=== PATIENT | male | born 1960 | race Caucasian/White ===

== ENCOUNTER 2016-11-28 14:16 | Observation (INO) | payer SELFPAY ==
[2016-11-28] MEDS ORDERED: NORMAL SALINE 1000 ML 1,000 ML IV ONE ×2 (14:55→18:56)
[2016-11-28] MEDS ORDERED: ONDANSETRON HCL INJ/PF 4 MG/2 ML SDV IV ONE (16:12)
[2016-11-28] MEDS ORDERED: HYDROMORPHONE HCL INJ/PF 2 MG/ML AMPULE IV ONE ×2 (16:12→18:56)
--- NOTE | 2016-11-28 16:19 | ER Document Report ---
ED Medical Screen (RME) - General Chief Complaint: Abdominal Pain Stated Complaint: ABDOMINAL PAIN Mode of Arrival: Ambulatory Information source: Patient TRAVEL OUTSIDE OF THE [place] IN LAST 30 DAYS: No - HPI Onset: This morning - 2 AM Onset/Duration: Sudden Context: AWAKENED BY PAIN Quality of pain: Cramping, Sharp, Stabbing Severity: Severe Associated Symptoms: Nausea, Sweating, Vomiting Exacerbated by: Denies Relieved by: Denies Similar symptoms previously: Yes - PANCREATITIS Recently seen / treated by doctor: Yes - 11/23, NARCS REFILLED - Related Data Smoking: Cigarettes Frequency of alcohol use: None - NONE IN PAST 5 YRS, HE SAYS. Drug Abuse: None Allergies/Adverse Reactions: hydrocodone [From Vicodin] Allergy (Verified 11/28/16 14:48) Past Medical History - General Information source: Patient - Social History Cigarette use (# per day): Yes Chew tobacco use (# tins/day): No Frequency of alcohol use: None Drug Abuse: None Lives with: Family Family history: Reviewed & Not Pertinent - Past Medical History Cardiac Medical History: Reports: None Pulmonary Medical History: Reports: None Neurological Medical History: Reports: None Endocrine Medical History: Reports: None Renal/ Medical History: Reports: None. Denies: Hx Peritoneal Dialysis Malignancy Medical History: Reports None GI Medical History: Denies: Hx Cirrhosis, Hx Hepatitis, Hx Liver Failure Musculoskeltal Medical History: Reports Hx Arthritis - NECK, BACK Skin Medical History: Reports None Past Surgical History: Denies: Hx Cholecystectomy - Immunizations Hx Diphtheria, Pertussis, Tetanus Vaccination: Yes Review of Systems - Review of Systems Constitutional: See HPI EENT: No symptoms reported Cardiovascular: No symptoms reported Respiratory: No symptoms reported Gastrointestinal: See HPI Musculoskeletal: See HPI Physical Exam - Vital signs Vitals: Temp Pulse Resp BP Pulse Ox 98.4 F 70 18 153/85 H 100 11/28/16 14:54 11/28/16 14:54 11/28/16 14:54 11/28/16 14:54 11/28/16 14:54 Interpretation: Hypertensive. No: Tachycardic, Tachypneic, Febrile - General General appearance: Alert In distress: Moderate - HEENT Head: Normocephalic Eyes: Normal Conjunctiva: Normal Ears: Normal Nasal: Normal Mouth/Lips: Normal Mucous membranes: Dry - Respiratory Respiratory status: No respiratory distress - Cardiovascular Rhythm: Regular - Abdominal Inspection: Normal Tenderness: Tender - EPIGASTRIC - Extremities General upper extremity: Normal inspection General lower extremity: Normal inspection - Neurological Neuro grossly intact: Yes Cognition: Normal Orientation: AAOx4 - Psychological Associated symptoms: Normal affect, Normal mood - Skin Skin Temperature: Warm Skin Moisture: Dry Skin Color: Normal Skin Turgor: Elastic Course - Vital Signs Vital signs: Temp Pulse Resp BP Pulse Ox 98.4 F 70 18 153/85 H 100 11/28/16 14:54 11/28/16 14:54 11/28/16 14:54 11/28/16 14:54 11/28/16 14:54
[2016-11-28 16:41] LABS: ABSOLUTE BASOPHILS # (AUTO) 0.1 10^3/uL (0.0-0.2); ABSOLUTE LYMPHOCYTES (AUTO) 0.8 10^3/uL (0.5-4.7); ABSOLUTE MONOCYTES (AUTO) 0.2 10^3/uL (0.1-1.4); ABSOLUTE NEUT (AUTO) 10.6 10^3/uL (1.7-8.2); BASOPHILS % (AUTO) 0.9 % (0-2); HEMATOCRIT 37.9 % (37.9-51.0); HEMOGLOBIN 12.8 g/dL (13.5-17.0); HGB HCT DIFFERENCE 0.5; LYMPHOCYTES % (AUTO) 6.7 % (13-45); MEAN CORPUSCULAR HEMOGLOBIN 32.1 pg (27.0-33.4); MEAN CORPUSCULAR HGB CONC 33.8 g/dL (32.0-36.0); MEAN CORPUSCULAR VOLUME 95 fl (80-97); RED BLOOD COUNT 3.99 10^6/uL (4.35-5.55); RED CELL DISTRIBUTION WIDTH 12.7 % (11.5-14.0); SEGMENTED NEUTROPHILS % (AUTO) 90.4 % (42-78); WHITE BLOOD COUNT 11.8 10^3/uL (4.0-10.5)
[2016-11-28 16:49] LABS: APPEARANCE,URINE CLEAR; BILIRUBIN,URINE NEGATIVE (NEGATIVE); GLUCOSE, URINE NEGATIVE (NEGATIVE); KETONES,URINE 80 mg/dL (NEGATIVE); LEUKOCYTE ESTERASE,URINE NEGATIVE (NEGATIVE); NITRITE,URINE NEGATIVE (NEGATIVE); PROTEIN,URINE 30 mg/dL (NEGATIVE); URINE SPECIFIC GRAVITY 1.028
[2016-11-28 16:59] LABS: URINE BARBITURATES SCREEN NEGATIVE; URINE METHADONE SCREEN NEGATIVE; URINE OPIATES LOW UNCONFIRMED POSITIVE; URINE PHENCYCLIDINE SCREEN NEGATIVE
[2016-11-28 17:01] LABS: ALANINE AMINOTRANSFERASE 30 U/L (21-72); ALBUMIN 4.6 g/dL (3.5-5.0); ALKALINE PHOSPHATASE 91 U/L (38-126); ANION GAP 16 (5-19); ASPARTATE AMINO TRANSFERASE 20 U/L (17-59); BILIRUBIN,DIRECT 0.2 mg/dL (0.0-0.4); BILIRUBIN,TOTAL 1.1 mg/dL (0.2-1.3); BLOOD UREA NITROGEN 14 mg/dL (7-20); CARBON DIOXIDE 23 mmol/L (22-30); CHLORIDE 105 mmol/L (98-107); CREATININE RESULT 0.66 mg/dL (0.52-1.25); GLUCOSE 123 mg/dL (75-110); LIPASE 34.9 U/L (23-300); POTASSIUM 3.6 mmol/L (3.6-5.0); SODIUM 144.3 mmol/L (137-145); TOTAL PROTEIN 7.6 g/dL (6.3-8.2)
[2016-11-28] MEDS ORDERED: FENTANYL CITRATE INJ/PF 100 MCG/2 ML AMPUL IV ONE (23:09)
[2016-11-28] MEDS ORDERED: PROMETHAZINE HCL INJ 25 MG/1 ML VIAL IM ONE (23:09)
--- NOTE | 2016-11-28 23:11 | ER Document Report ---
ED General - General Chief Complaint: Abdominal Pain Stated Complaint: ABDOMINAL PAIN Mode of Arrival: Ambulatory Notes: Patient is a 56-year-old male presents with complaint of abdominal pain has been ongoing for 2 days. Some nausea and vomiting started this morning. No diarrhea. He does have a history of pancreatitis. He is unsure if this is the same thing. He denies any fevers. Says he feels chilled. He denies any recent surgeries on his abdomen. No blood in the stool. No blood in his emesis. TRAVEL OUTSIDE OF THE [place] IN LAST 30 DAYS: No - Related Data Allergies/Adverse Reactions: hydrocodone [From Vicodin] Allergy (Verified 11/28/16 14:48) Past Medical History - General Information source: Patient - Social History Smoking Status: Current Every Day Smoker Cigarette use (# per day): Yes Chew tobacco use (# tins/day): No Frequency of alcohol use: None Drug Abuse: None Lives with: Family Family History: COPD Patient has suicidal ideation: No Patient has homicidal ideation: No - Past Medical History Cardiac Medical History: Reports: None Pulmonary Medical History: Reports: None Neurological Medical History: Reports: None Endocrine Medical History: Reports: None Renal/ Medical History: Reports: None. Denies: Hx Peritoneal Dialysis Malignancy Medical History: Reports None GI Medical History: Denies: Hx Cirrhosis, Hx Hepatitis, Hx Liver Failure Musculoskeltal Medical History: Reports Hx Arthritis - NECK, BACK Skin Medical History: Reports None Infectious Medical History: Denies: Hx Hepatitis Past Surgical History: Denies: Hx Cholecystectomy - Immunizations Hx Diphtheria, Pertussis, Tetanus Vaccination: Yes Review of Systems - Review of Systems Notes: My Normal Review Basic REVIEW OF SYSTEMS: CONSTITUTIONAL : Denies fever, chills, or sweats. Denies recent illness. EENT: Denies eye, ear, throat, or mouth pain or symptoms. Denies nasal or sinus congestion. CARDIOVASCULAR: Denies chest pain. RESPIRATORY: Denies cough, cold, or chest congestion. Denies shortness of breath, difficulty breathing, or wheezing. GASTROINTESTINAL: Has abdominal pain. Some vomiting. No diarrhea. Denies constipation. Last BM: GENITOURINARY: Denies difficulty urinating, painful urination, burning, frequency, or blood in urine. MUSCULOSKELETAL: Denies neck or back pain or joint pain or swelling. SKIN: Denies rash or skin lesions. NEUROLOGICAL: Denies altered mental status or loss of consciousness. Denies headache. Denies weakness or paralysis or loss of use of either side. Denies problems with gait or speech. Denies sensory or motor loss. ALL OTHER SYSTEMS REVIEWED AND NEGATIVE. Physical Exam - Vital signs Vitals: Temp Pulse Resp BP Pulse Ox 98.4 F 70 18 153/85 H 100 11/28/16 14:54 11/28/16 14:54 11/28/16 14:54 11/28/16 14:54 11/28/16 14:54 - Notes Notes: General Appearance: Well nourished, alert, cooperative, no acute distress, moderate to severe obvious discomfort. Vitals: reviewed, See vital signs table. Head: no swelling or tenderness to the head Eyes: PERRL, EOMI, Conjuctiva clear Mouth: No decreasd moisture Lungs: No wheezing, No rales, No rhonci, No accessory muscle use, good air exchange bilaterally. Heart: Normal rate, Regular rythm, No murmur, no rub Abdomen: Normal BS, soft, No rigidity, diffuse moderate abdominal tenderness, No guarding, no rebound, no abdominal masses, no organomegaly Extremities: strength 5/5 in all extremities, good pulses in all extremities, no swelling or tenderness in the extremities, no edema. Skin: warm, dry, appropriate color, no rash Neuro: speech clear, oriented x 3, normal affect, responds appropriately to questions. Course - Vital Signs Vital signs: Temp Pulse Resp BP Pulse Ox 98.6 F 70 19 119/65 100 11/28/16 23:48 11/28/16 14:54 11/29/16 05:31 11/29/16 05:31 11/29/16 05:31 - Laboratory Result Diagrams: 11/28/16 16:20 11/28/16 16:20 Laboratory results interpreted by me: 11/28/16 11/28/16 11/28/16 16:20 16:20 16:20 WBC 11.8 H RBC 3.99 L Hgb 12.8 L Seg Neutrophils % 90.4 H Lymphocytes % 6.7 L Monocytes % 2.0 L Absolute Neutrophils 10.6 H Glucose 123 H Urine Protein 30 H Urine Ketones 80 H Urine Blood SMALL H Urine Urobilinogen 4.0 H - EKG Interpretation by Me Additional EKG results interpreted by me: 11/28/16 23:49 EKG is reviewed and interpreted by me. EKG shows normal sinus rhythm with rate of [address] segment elevation or depression. No ischemic T wave inversions. NE interval, QRS duration, QTC intervals are within normal range. No old EKG available for comparison. - Transfer of Care Notes: 11/29/16 00:52 I have reevaluated the patient. His pain is improving. Phenergan did help his nausea. He wants to make sure he does get IV rehydration. I am giving him a liter bolus at this time. I will recheck him after the liter bolus is finished. 11/29/16 03:01 Patient received IV fluids. I did try an oral challenge with just water. He really started vomiting afterwards. Therefore gave her more nausea medicine. He still has a lot of nausea cannot hold down any liquids. I did call the hospitalist for admission. The hospitalist currently thinks this may be due to constipation from being on chronic opiates and wants to give him lactulose and then reassess him. Discharge - Discharge Clinical Impression: Abdominal pain Qualifiers: Abdominal location: generalized Qualified Code(s): R10.84 - Generalized abdominal pain Vomiting Qualifiers: Vomiting type: unspecified Vomiting Intractability: intractable Nausea presence : with nausea Qualified Code(s): R11.2 - Nausea with vomiting, unspecified Condition: Stable Disposition: ADMITTED OBSERVATION
[2016-11-28] MEDS ORDERED: PROMETHAZINE HCL INJ 50 MG/1 ML VIAL ONE (23:33)
[2016-11-29] MEDS ORDERED: METOCLOPRAMIDE HCL INJ/PF 10 MG/2 ML SDV IV ONE (02:22)
[2016-11-29] MEDS ORDERED: ONDANSETRON HCL INJ/PF 4 MG/2 ML SDV IV ONE (02:22)
[2016-11-29] MEDS ORDERED: LACTULOSE SYRUP 20 GM/30 ML UDCUP PR ONE (03:01)
[2016-11-29] MEDS ORDERED: LACTULOSE SYRUP 20 GM/30 ML UDCUP ONE (04:19)
[2016-11-29] MEDS ORDERED: HYDROMORPHONE HCL INJ/PF 2 MG/ML AMPULE IV ONE (04:21)
[2016-11-29] MEDS ORDERED: HALOPERIDOL LACTATE INJ 5 MG/1 ML VIAL IV ONE (04:34)
[2016-11-29] MEDS ORDERED: MAGNESIUM HYDROXIDE SUSP 30 ML UDCUP PO PRN (04:59)
[2016-11-29] MEDS ORDERED: IPRATROPIUM/ALBUTEROL 0.5-2.5 MG/3 ML AMPUL NEB PRN (04:59)
[2016-11-29] MEDS ORDERED: ACETAMINOPHEN 325 MG TABLET PO PRN (04:59)
--- NOTE | 2016-11-29 04:59 | PDOC H&P ---
History of Present Illness Patient complains of: Abdominal pain History of Present Illness: KATELYN DURAN is a 56 year old male with a history of, tobacco dependence, opiate and benzodiazepine dependent chronic pain on Soma, OxyContin and Valium. Has had 48 hours of abdominal pain with nausea and gas with constipation prompting him to seek evaluation emergency room where his an unremarkable workup except for a CT with moderate residual stool burden. In the emergency room he receives symptomatic management with fentanyl and Dilaudid then is referred to the hospitalist for admission. Upon entry to the patient's room he is asleep requiring vigorous limb shaking to arouse which results in crying out in pain with a heart rate of 72 blood pressure of 118/76 and zero eye contact. Past Medical History Cardiac Medical History: Reports: None Pulmonary Medical History: Reports: None Neurological Medical History: Reports: None Endocrine Medical History: Reports: None Renal/ Medical History: Reports: None Malignancy Medical History: Reports: None GI Medical History: Denies: Cirrhosis, Hepatitis Musculoskeltal Medical History: Reports: Arthritis - NECK, BACK Skin Medical History: Reports: None Past Surgical History Past Surgical History: Denies: Cholecystectomy Social History Lives with: Family Smoking Status: Current Every Day Smoker Cigarettes Packs Per Day: 1.5 Frequency of Alcohol Use: None Hx Recreational Drug Use: No - patient denies Drugs: None Hx Prescription Drug Abuse: No - patient denies - Advance Directive Resuscitation Status: Full Code Family History Family History: COPD Parental Family History Reviewed: Yes Children Family History Reviewed: Yes Sibling(s) Family History Reviewed.: Yes Medication/Allergy Home Medications: Carisoprodol [Soma] 1 tab PO BID PRN 05/28/16 Diazepam [Valium 5 mg Tablet] 5 mg PO BIDP PRN 05/28/16 Ibuprofen [Motrin 800 mg Tablet] 800 mg PO TIDP PRN 05/28/16 Nicotine [Nicoderm 14 mg/24 Hr Transdermal Patch] 1 each TD DAILY patch.td24 Oxycodone HCl [Oxycodone HCl 10 MG Tablet] 10 mg PO QID PRN #30 tablet 05/29/16 Allergies/Adverse Reactions: hydrocodone [From Vicodin] Allergy (Verified 11/28/16 14:48) Review of Systems Constitutional: ABSENT: chills, fever(s), headache(s), weight gain, weight loss Eyes: ABSENT: visual disturbances Ears: ABSENT: hearing changes Cardiovascular: ABSENT: chest pain, dyspnea on exertion, edema, orthropnea, palpitations Respiratory: ABSENT: cough, hemoptysis Gastrointestinal: ABSENT: abdominal pain, constipation, diarrhea, hematemesis, hematochezia, nausea, vomiting Genitourinary: ABSENT: dysuria, hematuria Musculoskeletal: ABSENT: joint swelling Integumentary: ABSENT: rash, wounds Neurological: ABSENT: abnormal gait, abnormal speech, confusion, dizziness, focal weakness, syncope Psychiatric: ABSENT: anxiety, depression, homidical ideation, suicidal ideation Endocrine: ABSENT: cold intolerance, heat intolerance, polydipsia, polyuria Hematologic/Lymphatic: ABSENT: easy bleeding, easy bruising Physical Exam Vital Signs: Temp Pulse Resp BP Pulse Ox 98.6 F 70 25 H 136/84 H 96 11/28/16 23:48 11/28/16 14:54 11/29/16 03:00 11/28/16 23:48 11/29/16 03:00 Intake & Output 11/27/16 11/28/16 11/29/16 11:59 11:59 11:59 Weight 86.183 kg General appearance: PRESENT: no acute distress, well-developed, well-nourished, other - Patient is asleep and requires prolonged vigorous shaking resulting in crying out in pain Head exam: PRESENT: atraumatic, normocephalic Eye exam: PRESENT: conjunctiva pink, EOMI, PERRLA. ABSENT: scleral icterus Ear exam: PRESENT: normal external ear exam Mouth exam: PRESENT: moist, tongue midline Neck exam: ABSENT: carotid bruit, JVD, lymphadenopathy, thyromegaly Respiratory exam: PRESENT: clear to auscultation lori. ABSENT: rales, rhonchi, wheezes Cardiovascular exam: PRESENT: RRR. ABSENT: diastolic murmur, rubs, systolic murmur Pulses: PRESENT: normal dorsalis pedis pul Vascular exam: PRESENT: normal capillary refill GI/Abdominal exam: PRESENT: normal bowel sounds, soft. ABSENT: distended, guarding, mass, organolmegaly, rebound, tenderness Rectal exam: PRESENT: deferred Extremities exam: PRESENT: full ROM. ABSENT: calf tenderness, clubbing, pedal edema Neurological exam: PRESENT: alert, awake, oriented to person, oriented to place , oriented to time, oriented to situation, CN II-XII grossly intact. ABSENT: motor sensory deficit Psychiatric exam: PRESENT: appropriate affect, normal mood. ABSENT: homicidal ideation, suicidal ideation Skin exam: PRESENT: dry, intact, warm. ABSENT: cyanosis, rash Results Laboratory Results: 11/28/16 16:20 11/28/16 16:20 11/28/16 11/28/16 11/28/16 16:20 16:20 16:20 WBC 11.8 H RBC 3.99 L Hgb 12.8 L Hct 37.9 MCV 95 MCH 32.1 MCHC 33.8 RDW 12.7 Plt Count 254 Seg Neutrophils % 90.4 H Lymphocytes % 6.7 L Monocytes % 2.0 L Eosinophils % 0.0 Basophils % 0.9 Absolute Neutrophils 10.6 H Absolute Lymphocytes 0.8 Absolute Monocytes 0.2 Absolute Eosinophils 0.0 Absolute Basophils 0.1 Sodium 144.3 Potassium 3.6 Chloride 105 Carbon Dioxide 23 Anion Gap 16 BUN 14 Creatinine 0.66 Est GFR ( Amer) > 60 Est GFR (Non-Af Amer) > 60 Glucose 123 H Calcium 10.0 Total Bilirubin 1.1 AST 20 ALT 30 Alkaline Phosphatase 91 Total Protein 7.6 Albumin 4.6 Lipase 34.9 Urine Color MAXX Urine Appearance CLEAR Urine pH 6.0 Ur Specific [place] 1.028 Urine Protein 30 H Urine Glucose (UA) NEGATIVE Urine Ketones 80 H Urine Blood SMALL H Urine Nitrite NEGATIVE Ur Leukocyte Esterase NEGATIVE Urine WBC (Auto) 2 Urine RBC (Auto) 14 Impressions: Abdomen/Pelvis CT 11/28/16 18:56 IMPRESSION: NO SIGNIFICANT OR ACUTE FINDING IN THE ABDOMEN OR PELVIS ON CT SCAN WITH IV CONTRAST. Chest X-Ray 11/28/16 23:58 IMPRESSION: NO ACUTE RADIOGRAPHIC FINDING IN THE CHEST. Assessment & Plan - Diagnosis (1) Narcotic bowel syndrome Is this a current diagnosis for this admission?: YesPlan: Lactulose enema and symptomatic management followed by bowel regiment (2) Chronic pain Is this a current diagnosis for this admission?: YesPlan: When necessary subcutaneous Dilaudid pending verification of home meds of Soma, OxyContin and Valium (3) Tobacco dependence Is this a current diagnosis for this admission?: YesPlan: Tobacco Dependence patient received tobacco cessation counseling and offered nicotine replacement options - Time Time Spent: 30 to 50 Minutes - Inpatient Certification Medical Necessity: Need Close Monitoring Due to Risk of Patient Decompensation, Need for Pain Control
[2016-11-29] MEDS: HEPARIN SOD (PORCINE) 5,000 UNIT/ML 1 ML SYRINGE SUBCUT SCH ×2 (06:09→13:41)
--- NOTE | 2016-11-29 07:55 | EKG REPORT ---
SEVERITY:- NORMAL ECG - SINUS RHYTHM : Confirmed by: Pasquale Bartlett MD 29-Nov-2016 07:54:44
[2016-11-29] MEDS ORDERED: DOCUSATE SODIUM 100 MG CAPSULE PO SCH (10:00)
[2016-11-29] MEDS ORDERED: DOCUSATE SODIUM 100 MG/10 ML UDC PO SCH (10:00)
[2016-11-29 14:55] LABS: URINE BARBITURATES SCREEN NEGATIVE; URINE METHADONE SCREEN NEGATIVE; URINE OPIATES LOW UNCONFIRMED POSITIVE; URINE PHENCYCLIDINE SCREEN NEGATIVE
[2016-11-29 16:29] VITALS: BP 126/79
--- NOTE | 2016-11-30 07:58 | PDOC DISCHARGE SUMMARY ---
General - Admit/Disc Date/PCP Admission Date/Primary Care Provider: 11/29/16 04:59 Discharge Date: 11/29/16 - Discharge Diagnosis (1) Constipation due to opioid therapy Is this a current diagnosis for this admission?: Yes (2) Chronic pain Is this a current diagnosis for this admission?: Yes (3) Narcotic bowel syndrome Is this a current diagnosis for this admission?: Yes (4) Tobacco dependence Is this a current diagnosis for this admission?: Yes - Additional Information Resuscitation Status: Full Code Discharge Diet: Regular, Other (Comments) - high fiber Discharge Activity: Activity As Tolerated, Slowly Increase Activity Home Medications: Amitriptyline HCl [Elavil 25 mg Tablet] 25 mg PO QHS 11/29/16 Oxycodone HCl 15 mg PO Q4HP PRN 11/29/16 Zolpidem Tartrate [Ambien] 10 mg PO QHS 11/29/16 History of Present Illness History of Present Illness: KATELYN DURAN is a 56 year old male with a history of, tobacco dependence, opiate and benzodiazepine dependent chronic pain on Soma, OxyContin and Valium. Has had 48 hours of abdominal pain with nausea and gas with constipation prompting him to seek evaluation emergency room where his an unremarkable workup except for a CT with moderate residual stool burden. In the emergency room he receives symptomatic management with fentanyl and Dilaudid then is referred to the hospitalist for admission. Upon entry to the patient's room he is asleep requiring vigorous limb shaking to arouse which results in crying out in pain with a heart rate of 72 blood pressure of 118/76 and zero eye contact. Hospital Course Hospital Course: Patient has CT which revealed that he is severely constipated. Patient was given lactulose enema with results. Patient's vomiting was controlled with combination of anti-medics and Haldol with good results. Patient's normal pain had resolved and he was discharged in stable condition. Patient is advised to take regular cathartics. These were provided for him. Physical Exam Vital Signs: Temp Pulse Resp BP Pulse Ox 98.4 F 73 16 126/79 H 100 11/29/16 16:29 11/29/16 16:29 11/29/16 16:29 11/29/16 16:29 11/29/16 16:29 Exam: General: Awake alert and answers questions appropriately, no acute respiratory distress HEENT: AT/NC, PERRL, EOMI, oropharynx is moist, pink, no scleral icterus, no conjunctival injection Chest: Clear to auscultation bilaterally, no wheezes rhonchi or rales; prolonged expiratory phase CV: Regular rate and rhythm, normal S1 and S2, no murmur, rub, or gallop Abdomen: Soft, nontender to palpation, nondistended, active bowel sounds; no rebound, rigidity, or guarding Extremities: No cyanosis, clubbing or edema Neuro: Cranial nerves II through XII are grossly intact without focal deficits Psych: flat Results Impressions: Abdomen/Pelvis CT 11/28/16 18:56 IMPRESSION: NO SIGNIFICANT OR ACUTE FINDING IN THE ABDOMEN OR PELVIS ON CT SCAN WITH IV CONTRAST. Chest X-Ray 11/28/16 23:58 IMPRESSION: NO ACUTE RADIOGRAPHIC FINDING IN THE CHEST. Qualifiers PATEINT BEING DISCHARGED WITH ANY OF THE FOLLOWING DIAGNOSIS?: No Plan Time Spent: Less than 30 Minutes
== END 2016-11-29 16:30 | disposition home or self-care (01) ==
LOC: ER 14:16 → EH 11-29 04:59
PROVIDERS: ADMIT Internal Medicine; ATTEND Internal Medicine
DX: K59.03 Drug induced constipation (principal); T40.2X5A Adverse effect of other opioids, initial encounter; G89.29 Other chronic pain; K63.89 Other specified diseases of intestine; R10.84 Generalized abdominal pain; R11.2 Nausea with vomiting, unspecified; R14.3 Flatulence; F17.210 Nicotine dependence, cigarettes, uncomplicated; F11.20 Opioid dependence, uncomplicated; F13.20 Sedative, hypnotic or anxiolytic dependence, uncomplicated; R61 Generalized hyperhidrosis; R10.816 Epigastric abdominal tenderness; M13.89 Other specified arthritis, multiple sites; Z87.19 Personal history of other diseases of the digestive system
CPT/HCPCS: 93005; 96376; 99285; 96372; 96361; 96374; 96375; 36415; 87086; 83690; 85025; 80053; 81001; 80307 ×2; 71010; 74177; 93010; G0378; J1644; J3010; J1630; J2765; J3490; J1170; J2550; J2405 ×2; J7030

== ENCOUNTER 2019-03-25 18:51 | Emergency (ER) | payer SELFPAY ==
--- NOTE | 2019-03-25 19:56 | ER Document Report ---
ED Medical Screen (RME) - General Chief Complaint: Head Injury Stated Complaint: HEAD PAIN Time Seen by Provider: 03/25/19 19:50 Mode of Arrival: Wheelchair Information source: Patient, Relative Notes: 56-year-old male presented to ED for complaint of head injury. He states a piece of metal fell 16 foot off the top of a ladder hitting him in the head given him a headache laceration to the top of the scalp. He went to the urgent care they stated that he was dizzy off balance with confusion. He is alert oriented respirations regular unlabored speaking in full sentences at this time he is able to tell me the date he is able to tell me where he is who is within and is answering all questions appropriately. He states he is very dizzy if he is tries to stand up. Patient refused Tylenol at this time. He states he needs some on the stronger. I will am sending him to the CAT scan he will be seen by another provider. I have greeted and performed a rapid initial assessment of this patient. A comprehensive ED assessment and evaluation of the patient, analysis of test results and completion of medical decision making process will be conducted by an additional ED providers. TRAVEL OUTSIDE OF THE [place] IN LAST 30 DAYS: No - Related Data Allergies/Adverse Reactions: hydrocodone [From Vicodin] Allergy (Verified 11/28/16 14:48) Past Medical History - Social History Family history: Reviewed & Not Pertinent Renal/ Medical History: Denies: Hx Peritoneal Dialysis GI Medical History: Denies: Hx Cirrhosis, Hx Hepatitis, Hx Liver Failure Musculoskeltal Medical History: Reports Hx Arthritis - NECK, BACK Infectious Medical History: Denies: Hx Hepatitis Past Surgical History: Denies: Hx Cholecystectomy - Immunizations Hx Diphtheria, Pertussis, Tetanus Vaccination: Yes Physical Exam - Vital signs Vitals: Temp Pulse Resp BP Pulse Ox 97.6 F 66 16 125/77 100 03/25/19 19:40 03/25/19 19:40 03/25/19 19:40 03/25/19 19:40 03/25/19 19:40 Course - Vital Signs Vital signs: Temp Pulse Resp BP Pulse Ox 97.6 F 66 16 125/77 100 03/25/19 19:40 03/25/19 19:40 03/25/19 19:40 03/25/19 19:40 03/25/19 19:40
--- NOTE | 2019-03-25 21:08 | RADIOLOGY REPORT (SQ) ---
EXAM DESCRIPTION: [facility]: CT HEAD WITHOUT IV CONTRAST CLINICAL HISTORY: 58 years Male; head injury laceration dizziness TECHNIQUE: Noncontrast CT head. All CT scans at this facility use dose modulation, iterative reconstruction, and/or weight based dosing when appropriate to reduce radiation dose to as low as reasonably achievable. COMPARISON: None. FINDINGS: James matter, white matter, ventricles, and cisterns are within normal limits. No acute hemorrhage or mass effect. Patchy mucosal thickening in the ethmoid air cells and left maxillary sinus. Mastoids are clear. No acute calvarial fractures. No significant scalp hematoma. No hyperdense foreign bodies. IMPRESSION: 1. No acute intracranial findings.
--- NOTE | 2019-03-25 22:34 | ER Document Report ---
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 states he was at work and an approx 12lb metal bar that is cubed shaped and elongated that is a stabilizing bar off a ladder fell from about 12 ft up in the air above him off the ladder accidentally and the blunt long side hit him on the right superior portion of his head. some neck pain along with pain over the site where the bar hit. he has had no vomiting. states he initially felt a little dizzy but didn't pass out. denies any dizziness currently. acting appropriate since. last TDAP was < 5yrs ago. no preceding injury sx. no pain anywhere else. no ams. no change in neurologic. no spinal surgeries. no blood thinners. no other recent head injury. pt able to walk. hasn't taken anything for his sx and would like something. 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 No other complaints at this time. Exacerbated by: Other - palpation Relieved by: Remaining still Similar symptoms previously: No Recently seen / treated by doctor: No - ROS Systems Reviewed and Negative: Yes All other systems reviewed and negative - to include 10 systems, unless mentioned in the hpi Past Medical History - General Information source: Patient - Social History Smoking Status: Current Every Day Smoker Cigarette use (# per day): Yes Chew tobacco use (# tins/day): No Smoking Education Provided: Yes Frequency of alcohol use: None Drug Abuse: None - however he does have a hx of chronic pain and opoid dependence 2* to this Family History: COPD Patient has suicidal ideation: No Patient has homicidal ideation: No Renal/ Medical History: Denies: Hx Peritoneal Dialysis GI Medical History: Reports: Hx Pancreatitis - non etoh Musculoskeletal Medical History: Reports Hx Arthritis - NECK, BACK-hx of chronic pain with opiod dependence Traumatic Medical History: Denies: Hx Spine Fracture Past Surgical History: Denies: Hx Cholecystectomy - Immunizations Immunizations up to date: Yes Hx Diphtheria, Pertussis, Tetanus Vaccination: Yes Vertical Provider Document - CONSTITUTIONAL Agree With Documented VS: Yes Exam Limitations: No Limitations General Appearance: No Apparent Distress Notes: GENERAL_APPEARANCE: well_nourished, alert, cooperative, no obvious discomfort. Pleasant, middle aged white male, who appears slightly older than stated age, smiling, speaking in full sentences, in no sign of pain or resp distress, easily sitting up. no one is with him VITALS: reviewed, see vital signs table. HEAD: 1.5 cm superficial linear laceration on the right superior parietal region of the head. otherwise normocephalic and atraumatic, no raccoon eyes, no cheung signs. no other swelling or ttp. no crepitation, visible fb, or active bleeding. mild ttp over the laceration. EARS: canals_clear_bilat, TMs_clear, no_discharge_from_ears. no hemotympanum EYES: EOMI without pain, conjunctiva_clear. PERRL, eyelids wnl. no drainage. no ttp or crepitation of the orbits. no sign of orbital/periorbital cellulitis. no hyphema. MOUTH: no_lacerations inside_mouth. no broken teeth. no tmj clicking or ttp. pharynx wnl. tongue protrudes midline. no drooling, tripoding, voice change, or stridor, no thrush or oral lesions. no tongue or lip swelling. NOSE: no drainage or epistaxis NECK: no_swelling of the neck. mild questionable midline bony tenderness to palpation of the midline mid c-spine. no step offs or deformities. hard c-collar initially placed upon my examination of the pt as it wasn't done prior to my ex amination or in triage. rom of neck not tested until ct c-spine resulted as negative following NEXUS criteria. after ct resulted as neg following NEXUS criteria pt had full rom and full strength. no meningeal signs. no sign of central cord syndrome. HEART: normal_rate, normal_rhythm, LUNGS: ctab. no chest wall ttp. no overlying skin changes. no flail chest or crepitation. ABDOMEN: normal_BS, soft, no_abd_tenderness, no rebound, guarding, distension, or peritoneal signs. no cva ttp. no overlying skin changes. BACK: no other midline spinal tenderness. no step offs or deformities RECTAL: deferred, however, no sign of loss of bowel or bladder or soiling of clothing. EXTREMITIES: strength 5/5 in all_extremities, good pulses all_extremities, no_abrasions\lacerations in the extremities, no_swelling\tenderness in the extremities. full rom. normal gait. 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 no shortening or rotation of the limbs or other signs of deformities unless otherwise noted. SKIN: warm, dry, good_color. no other grossly visible overlying skin changes or signs of trauma unless otherwise noted. NEURO: reflexes wnl, cranial nerves 2 - 12 intact, motor_intact, sensory_intact. cerebellar function intact GLASCOW_COMA_SCORE: (adult) - eyes_open_spontaneously_4, verbal_converses_and_oriented_5, motor_obeys_commands_6, glasgow_coma_total_15, MENTAL_STATUS: speech_clear, oriented_X_3, responds_appropriately to questions. - INFECTION CONTROL TRAVEL OUTSIDE OF THE [place] 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 a triage head ct was ordered however pt had midline c-spine ttp on my exam and given hx and moa i did order a ct cerv spine to r/o c-spine fx and immediately had nursing place pt in a hard c-collar until ct cerv spine resulted as neg following NEXUS criteria. pt has had no vomiting. initially felt a little dizzy but no syncope and denies any sx currently other than pain over where he sustained a laceration to the top of his head. laceration was repaired as per procedure note listed. ct head and ct cerv spine were both neg per rad and reviewed by myself. pt informed of findings. advised wound care. he had 5 jaleesa placed and has remained neurononfocal his entire visit. he is tolerating po and well appearing. c-collar removed after ct resulted as neg following NEXUS criteria and pt remained neurononfocal and had no signs of central or syndrome, spinal cord involvement or cauda equina. he responded well to tx listed. advised to have jaleesa removed in 7-10 days. monitor for signs of infection. advised of second hit syndrome and to avoid any activity where he could hit his head again until cleared by pcp. advised he may have a concussion and to have complete brain rest to allow for the best healing atmosphere. tylenol only prn pain. cool compresses to the area. strict return precautions given. will dc with zofran. advised to f/u with pcp in 1-2 days. return for any worsening symptoms. vss. well appearing. satting well on ra. neurononfocal. pt understands and agrees to plan. On reexam, pt improved with tx listed. remained stable. nontoxic. well appearing. pain controlled. tolerating po. requesting to go home. pt remained neurononfocal on multiple reexams Documentation achieved through voice recording which may lead to some occasional accidental typographical errors. Extensive efforts have been made to proof read documentation to make sure these are the least as possible. Category Date Time Status C Collar [Cervical Collar (ED)] NOW Care 03/25/19 22:41 Completed Suture Setup (ED) NOW -staple gun and supplies to [place] please Care 03/25/19 22:[address] CERVICAL SPINE WITHOUT [CT] Stat Exams 03/25/19 22:[address] HEAD WITHOUT [CT] Stat Exams 03/25/19 19:50 Completed Acetaminophen [Tylenol 325 mg Tablet] Med 03/25/19 22:41 Completed 975 mg PO NOW ONE Ondansetron [Zofran Odt 4 mg Tablet] Med 03/25/19 22:41 Completed 4 mg PO NOW ONE - Vital Signs Vital signs: Temp Pulse Resp BP Pulse Ox 97.6 F 66 16 125/77 100 03/25/19 19:40 03/25/19 19:40 03/25/19 19:40 03/25/19 19:40 03/25/19 19:40 03/26/19 00:31 - Diagnostic Test Radiology reviewed: Image reviewed, Reports reviewed Radiology results interpreted by me: 03/26/19 00:[address] 03/25/19 19:50 IMPRESSION: 1. No acute intracranial findings. Cervical Spine CT 03/25/19 22:41 IMPRESSION: No acute findings. Procedures - Laceration/Wound Repair Right Upper Head Time completed: 00:00 Wound length (cm): 1.5 Wound's Depth, Shape: Superficial, Linear Laceration pre-procedure: Betadine prep applied, Chloraprep applied Wound explored: Clean, No foreign body removed Irrigated w/ Saline (mLs): 50 Wound Repaired With: Jaleesa - 5 Number of Sutures: 5 Layer Closure?: No Post-procedure NV exam normal: Yes Complications: No Notes: pt consented to procedure. pt tolerated procedure without incident. hemostasis achieved with minimal to no blood loss Discharge - Discharge Clinical Impression: Neck pain, Nausea Head injury, closed, without LOC Qualifiers: Encounter type: initial encounter Qualified Code(s): S09.90XA - Unspecified injury of head, initial encounter Scalp laceration Qualifiers: Encounter type: initial encounter Qualified Code(s): S01.01XA - Laceration without foreign body of scalp, initial encounter Concussion Qualifiers: Encounter type: initial encounter Loss of consciousness presence/duration: without LOC Qualified Code(s): S06.0X0A - Concussion without loss of co nsciousness, initial encounter Condition: Good Disposition: HOME, SELF-CARE Instructions: Head Injury Precautions ([facility]), Laceration Care ([facility]) Additional Instructions: follow up with pcp in the next 1-2 days for recheck or return to the ed with any worsening symptoms. return in 7-10 days for staple removal. tylenol for any pain. cool compresses to the area. avoid any activity where you could hit your head again until cleared by pcp. brain rest. concussion precautions and wound care as discussed. Prescriptions: Ondansetron HCl [Zofran 4 mg Tablet] 1 tab PO Q8HP PRN #14 tablet PRN Reason: For Nausea/Vomiting
[2019-03-25] MEDS ORDERED: ONDANSETRON 4 MG TAB.RAPDIS PO ONE (22:41)
[2019-03-25] MEDS ORDERED: ACETAMINOPHEN 325 MG TABLET PO ONE (22:41)
[2019-03-25] MEDS: LIDOCAINE 1% INJ-PF (10 MG/ML) 30 ML SDV INJ ONE (23:01)
--- NOTE | 2019-03-26 00:27 | RADIOLOGY REPORT (SQ) ---
EXAM DESCRIPTION: CT CERVICAL SPINE WITHOUT IV CONTRAST COMPLETED DATE/TME: 03/25/2019 22:41 CLINICAL HISTORY: 58 years Male, axial loading trauma. Comparison: None. Technique: No contrast. Coronal and sagittal reformat. This exam was performed according to our departmental dose-optimization program, which includes automated exposure control, adjustment of the mA and/or kV according to patient size and/or use of iterative reconstruction technique.[facility]: Dose Right [facility]: CareDose [facility]: Dose Right [facility]: Teradose 4D [facility]: Capigami LIMITATIONS: None Findings: Paraseptal emphysema. Small moderate irregular disc bulges between the C4 and C7 levels cause [id number] spinal canal stenosis and [id number] bilateral foraminal stenoses, left more than right. Mild/Small thyroid heterogeneity/nodularity for which no follow-up imaging is recommended based on [facility] Best Practices Guidelines. Normal alignment. Normal curvature. No fracture. Normal vertebral heights. Partially imaged nuchal soft tissues, inferior cranium, and upper thorax appear otherwise grossly intact. IMPRESSION: No acute findings.
[2019-03-26] MEDS: LIDOCAINE 1% INJ-PF (10 MG/ML) 30 ML SDV INJ ONE (00:47)
[2019-03-26 00:58] VITALS: BP 152/88
== END 2019-03-26 00:56 | disposition home or self-care (01) ==
LOC: ER 18:51
PROC: 0HQ0XZZ Repair Scalp Skin, External Approach (ICD-10-PCS; principal; 2019-03-25)
DX: S01.01XA Laceration without foreign body of scalp, initial encounter (principal); S06.0X0A Concussion without loss of consciousness, initial encounter; S09.90XA Unspecified injury of head, initial encounter; M54.2 Cervicalgia; R11.0 Nausea; W22.8XXA Striking against or struck by other objects, initial encounter; J44.9 Chronic obstructive pulmonary disease, unspecified
CPT/HCPCS: 70450; 72125; 12001; L0120; S0119; 99283; J3490; L0172